=== PATIENT | female | born 1990 | race African-American/Black ===

== ENCOUNTER 2020-03-04 08:15 | Emergency (ER) | payer OTHER ==
[2020-03-04] MEDS ORDERED: METHYLPREDNISOLONE INJ 125 MG/2 ML SDV IV ONE (10:14)
[2020-03-04] MEDS ORDERED: FAMOTIDINE INJ/PF 20 MG/2 ML SDV IV ONE (10:15)
[2020-03-04 12:08] VITALS: BP 111/78
--- NOTE | 2020-03-04 12:27 | ER Document Report ---
ED General - General Chief Complaint: Hives Stated Complaint: HIVES Time Seen by Provider: 03/04/20 10:01 Mode of Arrival: Ambulatory Information source: Patient Notes: This 29-year-old woman brought presents to the emergency department with complaint of hives. States that she has been having episodes of hives periodically in the past. She has relate the episodes to stress. Usually Benadryl controls them, however she has taken Benadryl over the past 3 days and has had recurrence of the hives and itching. Today she noted swelling in her left ear and decided to come to the emergency department for further evaluation and treatment. She denies a known precipitation of the symptoms. She denies new soaps, perfumes, foods or other possible causes. - Related Data Allergies/Adverse Reactions: No Known Allergies Allergy (Verified 03/04/20 08:27) Past Medical History - Social History Smoking Status: Never Smoker Chew tobacco use (# tins/day): No Frequency of alcohol use: None Drug Abuse: None Family History: Reviewed & Not Pertinent Patient has homicidal ideation: No Review of Systems - Review of Systems Notes: Constitutional: Negative for fever. HENT: + Left ear swelling Eyes: Negative for visual changes. Cardiovascular: Negative for chest pain. Respiratory: Negative for shortness of breath. Gastrointestinal: Negative for abdominal pain, vomiting or diarrhea. Genitourinary: Negative for dysuria. Musculoskeletal: Negative for back pain. Skin: + Rash Neurological: Negative for headaches, weakness or numbness. 10 point ROS negative except as marked above and in HPI. Physical Exam - Vital signs Vitals: Temp Pulse Resp BP Pulse Ox 97.5 F 73 20 120/83 100 03/04/20 08:18 03/04/20 08:18 03/04/20 08:18 03/04/20 08:18 03/04/20 08:18 - Notes Notes: PHYSICAL EXAMINATION: Physical Exam: General: Well-nourished well-developed 29-year-old woman with itching, left ear swelling, and rash. HEENT: NC/AT, pupils equal round and reactive to light, MM moist,nares clear, oropharynx clear, airway patent, left pinna positive swelling Neck: supple, no adenopathy, no masses. Good range of motion Lungs: clear, no wheezing, no rales no rhonchi CVS: Regular rate and rhythm no murmur gallop or rub Abdomen: Soft, active, nontender, no masses, no hepatosplenomegaly Ext: No edema, clubbing or cyanosis. Neuro: Alert and responsive, moving all 4 extremities on command, cranial nerves intact, no focal findings Skin: + Maculopapular rash diffuse Course - Re-evaluation Re-evalutation: 03/04/20 12:25 Patient was given Solu-Medrol 125 mg IV and Pepcid 20 mg IV. Assessment post medications, patient notes that the itching had improved and swelling seems to be improving as well. She was not given Benadryl since she is driving. I have asked her to use the medications prednisone and hydroxyzine as prescribed. She may start the prednisone this afternoon. If her symptoms continue or if there are other concerns referral for allergy testing may be in order. Patient appears to understand this plan. - Vital Signs Vital signs: Temp Pulse Resp BP Pulse Ox 97.5 F 71 18 111/78 100 03/04/20 12:07 03/04/20 12:07 03/04/20 12:07 03/04/20 12:07 03/04/20 12:07 Discharge - Discharge Clinical Impression: Urticaria Allergic reaction Qualifiers: Encounter type: initial encounter Qualified Code(s): T78.40XA - Allergy, unspecified, initial encounter Angioedema Qualifiers: Encounter type: initial encounter Qualified Code(s): T78.3XXA - Angioneurotic edema, initial encounter Condition: Good Disposition: HOME, SELF-CARE Instructions: Acute Allergic Reaction ([facility]), Acute Urticaria ([facility]) Additional Instructions: You were seen in the emergency department today with a rash and swelling koffi arently allergic reaction. You are being sent home with prednisone and hydroxyzine. Please use those medications as prescribed. Follow-up as needed. If your symptoms are resolved, note to your primary care doctor when you are seen that you have been having these reactions. If your symptoms are worsening or if you have other concerns you may return to the emergency department for further evaluation and treatment. HOME CARE INSTRUCTIONS & INFORMATION: Thank you for choosing us for your medical needs. We hope you're satisfied with the care you received. After you leave, you must properly care for your problem and, at the same time, observe its progress. Any condition can change. Some illnesses can change rapidly over hours or days. If your condition worsens, return to the Emergency Department or see your physician promptly. ABOUT YOUR X-RAYS AND EKG'S: If you had an EKG or X-rays taken, they have been read by the Emergency Physician. The X-rays and EKG's will also be read by a Radiologist or Manager Of Corporate Communications within 24 hours. If discrepancies are noted, you will be notified by telephone. Please be certain the ED has a correct telephone number & address where you can be reached. Also, realize that some fractures or abnormalities do not show up on initial X-rays. If your symptoms continue, see your physician. ABOUT YOUR LABORATORY TEST: If you had laboratory tests, the results have been reviewed by the Emergency Physician. Some test results (for example cultures) may not be available for several days. You will be contacted if any test result shows you need additional treatment. Please be certain the ED has a correct telephone number and address where you can be reached. ABOUT YOUR MEDICATIONS: You will receive instructions on how to take your medicine on the prescription label you receive. Additional information may be provided by the Pharmacy. If you have questions afterwards, call the ED for clarification or further instructions. Some prescribed medications may cause drowsiness. Do not perform tasks such as driving a car or operating machinery without consulting your Pharmacist. If you feel you need a refill of pain medication, your condition will need re-evaluation. Please do not call for a refill of any medication. ABOUT YOUR SIGNATURE: Signature of this document acknowledges to followin. Understanding that you received emergency treatment and that you may be released before al medical problems are known or treated. Please be certain the ED has a correct phone number & address where you can be reached. 2. Acknowledgement that you will arrange for follow-up care as recommended. 3. Authorization for the Emergency Physician to provide information to your follow-up Physician in order to maximize your care. AT ANY TIME, IF YOUR SYMPTOMS CHANGE SIGNIFICANTLY OR WORSEN OR YOU DEVELOP NEW SYMPTOMS, RETURN TO THE EMERGENCY DEPARTMENT IMMEDIATELY FOR RE-EVALUATION. OUR GOAL IS TO PROVIDE EXCELLENT MEDICAL CARE! WE HOPE THAT WE HAVE MET YOUR EXPECTATIONS DURING YOUR EMERGENCY DEPARTMENT VISIT AND THAT YOU FEEL YOU HAVE RECEIVED EXCELLENT CARE! Prescriptions: Prednisone [Deltasone 20 mg Tablet] 1 tab PO BID 5 Days #10 tablet Hydroxyzine Pamoate [Vistaril 25 mg Capsule] 25 mg PO Q6 PRN #20 capsule PRN Reason: Rash
== END 2020-03-04 12:39 | disposition home or self-care (01) ==
LOC: ER 08:15
DX: T78.3XXA Angioneurotic edema, initial encounter (principal); X58.XXXA Exposure to other specified factors, initial encounter
CPT/HCPCS: 99283; 96374; 96375; J2930; S0028

== ENCOUNTER 2020-03-15 03:34 | Emergency (ER) | payer OTHER ==
[2020-03-15 03:39] VITALS: BP 132/76
[2020-03-15] MEDS ORDERED: FAMOTIDINE 20 MG TABLET PO ONE (07:19)
--- NOTE | 2020-03-15 07:20 | ER Document Report ---
HPI - HPI Time Seen by Provider: 03/15/20 06:50 Pain Level: Denies Context: Patient is a 29-year-old female with no past medical history who presents emergency department with a chief complaint of swelling to her right eye area. Patient was seen here on March 04 and was started on prednisone and hydroxyzine. Patient states that she took 5 days of prednisone and ended up having her symptoms go away, but yesterday noticed that she ended up having some right eye swelling. Denies shortness of breath difficulty breathing. - ROS Systems Reviewed and Negative: Yes All other systems reviewed and negative - CONSTITUTIONAL Constitutional: DENIES: Fever, Chills - EENT EENT: REPORTS: Eye problems - swelling to right eye. DENIES: Sore Throat, Ear Pain, Nasal Drainage-Clear, Nasal Drainage-Purulent, Congestion - NEURO Neurology: DENIES: Headache, Weakness, Vision blurred, Dizzinesss / Vertigo - CARDIOVASCULAR Cardiovascular: DENIES: Chest pain - RESPIRATORY Respiratory: DENIES: Trouble Breathing, Coughing - GASTROINTESTINAL Gastrointestinal: DENIES: Abdominal Pain, Nausea, Patient vomiting - REPRODUCTIVE Reproductive: DENIES: : - MUSCULOSKELETAL Musculoskeletal: DENIES: Extremity pain - DERM Skin Color: Normal Skin Problems: None Past Medical History - Social History Smoking Status: Never Smoker Chew tobacco use (# tins/day): No Frequency of alcohol use: None Drug Abuse: None Family History: Reviewed & Not Pertinent Vertical Provider Document - CONSTITUTIONAL Agree With Documented VS: Yes Exam Limitations: No Limitations General Appearance: No Apparent Distress - HEENT Notes: Edema noted to surrounding eyelid - NECK Neck: Normal Inspection - RESPIRATORY Respiratory: Breath Sounds Normal, No Respiratory Distress - CARDIOVASCULAR Cardiovascular: Regular Rate, Regular Rhythm Pulses: Normal: Radial - MUSCULOSKELETAL/EXTREMETIES Musculoskeletal/Extremeties: FROM, Edema - right eyelid - NEURO Level of Consciousness: Awake, Alert, Appropriate Motor/Sensory: No Motor Deficit, No Sensory Deficit - DERM Integumentary: Warm, Dry Course - Re-evaluation Re-evalutation: 03/15/20 07:17 Patient has some swelling noted to her right eye. I have a low suspicion for cellulitis. We will start the patient on Pepcid. Advised patient to follow-up with an pocket flap creasing machine operator. She is in agreement with this plan. Follow-up precautions were given. Verbal discharge instructions were given to the patient. They verbalized understanding. They are stable for discharge. - Vital Signs Vital signs: Temp Pulse Resp BP Pulse Ox 98.1 F 74 16 132/76 H 100 03/15/20 04:40 03/15/20 03:38 03/15/20 03:38 03/15/20 03:38 03/15/20 03:38 Discharge - Discharge Clinical Impression: Eye swelling, right Condition: Stable Disposition: HOME, SELF-CARE Additional Instructions: You were seen today in the emergency department for swelling of your right eye. Please start Pepcid. You can buy this [id number] or use the prescription. Please follow-up with a primary care provider. See if you can be referred to an pocket flap creasing machine operator. Prescriptions: Famotidine [Pepcid 20 mg Tablet] 20 mg PO BID #60 tablet Forms: Return to Work
== END 2020-03-15 07:54 | disposition home or self-care (01) ==
LOC: ER 03:34
DX: H02.843 Edema of right eye, unspecified eyelid (principal)
CPT/HCPCS: 99282